=== PATIENT | female | born 1985 | race Two or more races ===

== ENCOUNTER 2021-09-23 04:30 | Emergency (ER) | payer OTHER, BC ==
[2021-09-23] MEDS ORDERED: Loperamide 2 MG Cap PO ONE (05:03)
[2021-09-23] MEDS ORDERED: Ondansetron 4 MG Tab.DIS PO ONE (05:03)
[2021-09-23] MEDS ORDERED: Famotidine 20 MG Tab PO ONE (05:03)
== END 2021-09-23 06:06 | disposition home or self-care (01) ==
LOC: JD.ED 04:30
DX: R19.7 Diarrhea, unspecified (principal); Z88.5 Allergy status to narcotic agent; Z88.1 Allergy status to other antibiotic agents
CPT/HCPCS: 36415; 80053; 85025; 99284; A9270; 99283